=== PATIENT | male | born 1985 | race Caucasian/White ===

== ENCOUNTER 2020-01-31 09:20 | Emergency (ER) | payer OTHER ==
[~2020-01-31] VITALS: Ht 177.8 cm; Wt 98.1 kg
--- NOTE | 2020-01-31 10:00 | NUR ---
PT C/O LEFT INGUINAL HERNIA AND CYST ON RIGHT TESTICAL DX'D ON WEDNESDAY. PT C/O N/V AND CHILLS GETTING WORSE OVER THE LAST THREE DAYS. Provider to bedside-discused plan of care
[2020-01-31] MEDS ORDERED: ONDANSETRON 2MG/ML, 2ML ONE (10:58)
[2020-01-31] MEDS ORDERED: MORPHINE SULFATE 4 MG/ML, 1ML ONE (10:58)
[2020-01-31] MEDS ORDERED: MORPHINE SULFATE 4 MG/ML, 1ML IVPush ONE (11:00)
[2020-01-31] MEDS ORDERED: ONDANSETRON 2MG/ML, 2ML IVPush PRN (11:00)
[2020-01-31 11:12] VITALS: BP 120/62
--- NOTE | 2020-01-31 11:13 | NUR ---
TASK RN NOTE: PIV PLACED, PT MEDICATED PER EMAR FOR 7/10 GROIN PAIN. PT ON BP AND SPO2 MONITORS IN PLACE. CALL LIGHT IN REACH. WARM BLANKET PROVIDED.
--- NOTE | 2020-01-31 11:21 | NUR ---
CT CALLED TO EXPEDITE EXAM. WITH REASSESSMENT REPORTS PAIN IMPROVED TO 2/10
[2020-01-31 11:22] LABS: BASOPHILS # (AUTO) 0.04 x10^3/uL (0-0.1); BASOPHILS % (AUTO) 1 % (0-1); EOSINOPHILS # (AUTO) 0.13 x10^3/uL (0-0.4); EOSINOPHILS % (AUTO) 2 % (1-7); LYMPHOCYTES # (AUTO) 1.51 x10^3/uL (1-3.4); LYMPHOCYTES % (AUTO) 20 % (22-44); MD NO; MEAN CORPUSCULAR HEMOGLOBIN 31.6 pg (27.5-34.5); MEAN CORPUSCULAR HGB CONC 32.9 g/dL (33.2-36.2); MEAN CORPUSCULAR VOLUME 95.8 fL (81-97); MEAN PLATELET VOLUME 6.9 fL (7.4-10.4); MONOCYTES # (AUTO) 0.63 x10^3/uL (0.2-0.8); MONOCYTES % (AUTO) 9 % (2-9); NEUTROPHILS # (AUTO) 5.08 x10^3/uL (1.8-6.8); NEUTROPHILS % (AUTO) 69 % (42-75); PLATELET COUNT 279 x10^3/uL (130-400); RED BLOOD COUNT 4.79 x10^6/uL (4.38-5.82)
--- NOTE | 2020-01-31 11:30 | NUR ---
TO CT SCAN
[2020-01-31 11:32] LABS: CALCIUM 9.1 mg/dL (8.5-10.1)
[2020-01-31 11:33] LABS: CREATININE 1.24 mg/dL (0.7-1.3)
[2020-01-31 11:44] LABS: ANION GAP 5 mmol/L (5-15); CHLORIDE 106 mmol/L (98-107)
--- NOTE | 2020-01-31 12:00 | NUR ---
WITH REASSESSMENT ABD PAIN IMPROVED TO 2/10
== END 2020-01-31 12:37 | disposition home or self-care (01) ==
LOC: ED 10:44
DX: K40.90 Unilateral inguinal hernia, without obstruction or gangrene, not specified as recurrent (principal); L98.9 Disorder of the skin and subcutaneous tissue, unspecified; R11.2 Nausea with vomiting, unspecified; R19.7 Diarrhea, unspecified; J45.909 Unspecified asthma, uncomplicated; J02.9 Acute pharyngitis, unspecified; R51 Headache
CPT/HCPCS: 36415; 74176; 80048; 83605; 85025; 96374; 96375; 99284; J2270; J2405

== ENCOUNTER → 2020-04-18 | Outpatient (CLI) | payer OTHER ==
[~2020-04-18] MED LIST: ALBU8.5H8 INH; HYDROXYZINE PO; PAROXETINE
[2020-04-18 16:54] LABS: BASOPHILS # (AUTO) 0.04 x10^3/uL (0-0.1); BASOPHILS % (AUTO) 1 % (0-1); EOSINOPHILS # (AUTO) 0.12 x10^3/uL (0-0.4); EOSINOPHILS % (AUTO) 2 % (1-7); LYMPHOCYTES # (AUTO) 1.98 x10^3/uL (1-3.4); LYMPHOCYTES % (AUTO) 27 % (22-44); MD NO; MEAN CORPUSCULAR HEMOGLOBIN 31.8 pg (27.5-34.5); MEAN CORPUSCULAR HGB CONC 33.1 g/dL (33.2-36.2); MEAN PLATELET VOLUME 7.7 fL (7.4-10.4); MONOCYTES # (AUTO) 0.58 x10^3/uL (0.2-0.8); MONOCYTES % (AUTO) 8 % (2-9); NEUTROPHILS # (AUTO) 4.56 x10^3/uL (1.8-6.8); NEUTROPHILS % (AUTO) 63 % (42-75); PLATELET COUNT 296 x10^3/uL (130-400); RED BLOOD COUNT 4.55 x10^6/uL (4.38-5.82); RED CELL DISTRIBUTION WIDTH 14.1 % (9.4-14.8)
[2020-04-18 16:59] LABS: MICROSCOPIC NOT IND
[2020-04-18 17:06] LABS: ALANINE AMINOTRANSFERASE 34 U/L (12-78); ALBUMIN 4.1 g/dL (3.4-5.0); ANION GAP 4 mmol/L (5-15); CALCIUM 9.6 mg/dL (8.5-10.1); CHLORIDE 106 mmol/L (98-107); CREATININE 1.16 mg/dL (0.7-1.3)
[2020-04-18 17:08] LABS: ALKALINE PHOSPHATASE 62 U/L (45-117); BILIRUBIN,TOTAL 0.5 mg/dL (0.2-1.0); TOTAL PROTEIN 7.6 g/dL (6.4-8.2)
== END | disposition home or self-care (01) ==
LOC: STAR 15:21
PROVIDERS: ATTEND Urology
DX: Z01.818 Encounter for other preprocedural examination (principal); Z20.828 Contact with and (suspected) exposure to other viral communicable diseases; N43.40 Spermatocele of epididymis, unspecified
CPT/HCPCS: 36415; 80053; 81003; 85025; 87086; 87635

== ENCOUNTER 2020-04-22 13:22 | Day surgery (SDC) | payer OTHER ==
[~2020-04-22] VITALS: Ht 177.8 cm; Wt 98.6 kg
[2020-04-22] MEDS ORDERED: LACTATED RINGERS 1,000 ML IV SCH (13:46)
[2020-04-22 13:47] VITALS: BP 142/81
[2020-04-22] MEDS ORDERED: CHLORHEXIDINE 15 ML UDC MM ONE (14:00)
[2020-04-22] MEDS ORDERED: CHLORHEXIDINE 15 ML UDC ONE (14:00)
[2020-04-22] MEDS ORDERED: MIDAZOLAM 1 MG/ML, 2ML ONE (15:26)
[2020-04-22] MEDS ORDERED: FENTANYL PF 250 MCG/5ML ONE ×2 (15:27→15:57)
[2020-04-22] MEDS ORDERED: BUPIVACAINE/PF 0.25% ONE (15:36)
[2020-04-22] MEDS ORDERED: CEFAZOLIN 1,000 MG ONE (15:40)
[2020-04-22] MEDS ORDERED: DEXAMETHASONE 4 MG/ML, 1ML ONE (15:40)
[2020-04-22] MEDS ORDERED: ONDANSETRON 2MG/ML, 2ML ONE (15:40)
[2020-04-22] MEDS ORDERED: SUCCINYLCHOLINE 20 MG/ML, 10ML ONE (15:40)
[2020-04-22] MEDS ORDERED: PROPOFOL 10 MG/ML, 20ML ONE (15:40)
[2020-04-22] MEDS ORDERED: LORazepam 2 MG/ML, 1ML IVPush PRN (16:30)
[2020-04-22] MEDS ORDERED: LABETALOL 5MG/ML, 20ML IV PRN (16:30)
[2020-04-22] MEDS ORDERED: hydrALAzine 20 MG/ML, 1ML IV PRN (16:30)
[2020-04-22] MEDS ORDERED: HYDROmorphone 1 MG/ML, 1ML INJ IVPush PRN (16:30)
[2020-04-22] MEDS ORDERED: METHOCARBAMOL 1,000 MG in DEXTROSE 5% 100 ML IV PRN (16:30)
[2020-04-22] MEDS ORDERED: OXYcodone 5 MG/5 ML ORAL.SOL UDC PO PRN (16:30)
[2020-04-22] MEDS ORDERED: KETOROLAC 30 MG/1 ML IVPush PRN (16:30)
[2020-04-22] MEDS ORDERED: EPHEDRINE 50 MG/ML, 1ML IVPush PRN (16:30)
[2020-04-22] MEDS ORDERED: ONDANSETRON 2MG/ML, 2ML IVPush PRN (16:30)
[2020-04-22] MEDS ORDERED: ACETAMINOPHEN 325 MG TABLET PO PRN (16:30)
[2020-04-22] MEDS ORDERED: PROMETHAZINE 12.5 MG SUPP PR PRN (16:30)
[2020-04-22] MEDS ORDERED: ALBUTEROL HFA 90 MCG/SPRAY INH ONE (17:00)
[2020-04-22] MEDS ORDERED: LABETALOL 5MG/ML, 20ML ONE (17:25)
[2020-04-22] MEDS ORDERED: ACETAMINOPHEN 650 MG/20.3 ML UDC ONE (17:41)
[2020-04-22] MEDS ORDERED: FENTANYL PF 100 MCG/2ML ONE (17:42)
[2020-04-22] MEDS ORDERED: OXYcodone 5 MG/5 ML ORAL.SOL UDC ONE (17:42)
[2020-04-22] MEDS: FENTANYL PF 100 MCG/2ML IV PRN ×3 (17:53→18:03)
[2020-04-22] MEDS ORDERED: LORazepam 2 MG/ML, 1ML ONE (17:59)
== END 2020-04-22 20:30 | disposition home or self-care (01) ==
LOC: OR 13:22 → 4NE 18:20 → OR 20:30
PROVIDERS: ATTEND Urology
DX: N43.40 Spermatocele of epididymis, unspecified (principal); N43.2 Other hydrocele; J45.909 Unspecified asthma, uncomplicated; F12.90 Cannabis use, unspecified, uncomplicated; Z79.899 Other long term (current) drug therapy; Z98.890 Other specified postprocedural states; Z87.891 Personal history of nicotine dependence; Z72.89 Other problems related to lifestyle
CPT/HCPCS: 54840; 55040; 55250; 88304; J0330; J0690; J1100; J2060; J2250; J2405; J2704; J3010; J3490; J7120; G0378